=== PATIENT | female | born 1995 | race Caucasian/White ===

== ENCOUNTER → 2016-09-18 | Outpatient (CLI) | payer BC ==
[2016-09-18 14:23] LABS: URINE APPEARANCE CLEAR (CLEAR); URINE BILIRUBIN NEG (NEG); URINE COLOR YELLOW; URINE EPITHELIAL CELL AUTO >30 /lpf (0-5); URINE NITRITE NEG (NEG); URINE PH 5.5 (4.5-7.5); URINE SPECIFIC GRAVITY 1.008 (1.000-1.030); UROBILINOGEN NEG (NEG)
[2016-09-18 14:26] LABS: MANUAL MICROSCOPIC REQUIRED? NO; REVIEW REQ? NO
[2016-09-20 19:37] LABS: HERPES SIMPLEX AB IGG-2 <0.90 INDEX; HSV1 AB IGM Positive (Negative); HSV2 AB IGM Positive (Negative)
[2016-09-22 06:32] LABS: HSV1 IGM TITER(REFLEX ONLY!) 1:20 (<1:20); HSV2 IGM TITER(REFLEX ONLY!) 1:20 (<1:20)
== END | disposition home or self-care (01) ==
LOC: C.LAB1850 11:55
PROVIDERS: ATTEND Physician Assistant
DX: A60.00 Herpesviral infection of urogenital system, unspecified (principal); R39.9 Unspecified symptoms and signs involving the genitourinary system